=== PATIENT | female | born 1980 | race Caucasian/White ===

== ENCOUNTER 2017-12-15 10:19 | Emergency (ER) | payer BC ==
[2017-12-15 10:34] VITALS: BP 121/76
--- NOTE | 2017-12-15 10:52 | ED ---
Lower Extremity - HPI Summary HPI Summary: 37 yr old female with the complaint of right foot redness, swelling. She was camping in [facility] over the weekend. On Friday she thought she had gotten a bug bite to the top of foot near, 3/4 toes. Then she began to get some redness and blister that formed on Friday in the area, and today the right foot appears more red proximally on the dorsum with mild swelling to the foot now. No fever or chills. She does not feel ill. No other complaints. - History of Current Complaint Chief Complaint: UCLowerExtremity Stated Complaint: RT TOE COMPLAINT Time Seen by Provider: 12/15/17 10:36 Hx Last Menstrual Period: 12/26/14 Pain Intensity: 6 - Allergies/Home Medications Allergies/Adverse Reactions: Allergies Allergy/AdvReac Type Severity Reaction Status Date / Time artificial colors Allergy Intermediate Rash Uncoded 12/15/17 10:33 Home Medications: Home Medications Turmeric [Curcumin] 1 tab PO DAILY 12/15/17 [History Confirmed 12/15/17] PMH/Surg Hx/FS Hx/Imm Hx Infectious Disease History: No Infectious Disease History: Denies: Traveled Outside the [place] in Last 30 Days - Family History Known Family History: Positive: None - Social History Occupation: Employed Full-time Lives: With Family Alcohol Use: Occasionally Substance Use Type: Reports: None Smoking Status (MU): Never Smoked Tobacco Review of Systems Constitutional: Negative Positive: Other - cellulitis foot All Other Systems Reviewed And Are Negative: Yes Physical Exam Triage Information Reviewed: Yes Vital Signs On Initial Exam: Initial Vitals Temp Pulse Resp BP Pulse Ox 99.2 F 89 14 121/76 100 12/15/17 10:29 12/15/17 10:29 12/15/17 10:29 12/15/17 10:29 12/15/17 10:29 Vital Signs Reviewed: Yes Appearance: Positive: Well-Appearing, No Pain Distress Skin: Positive: Other - redness to the dorsum of the right foot over the MP areas of 3/4 toes without any blisters. There is redness going more proximal on dorsum of the foot with associated mild edema. Head/Face: Positive: Normal Head/Face Inspection Eyes: Positive: EOMI Neck: Positive: Nontender Respiratory/Lung Sounds: Positive: Clear to Auscultation, Breath Sounds Present Cardiovascular: Positive: Pulses are Symmetrical in both Upper and Lower Extremities - DP and PT pulses good and strong.. Negative: Leg Edema Left, Leg Edema Right - no edema calf or thigh Abdomen Description: Negative: Distended Musculoskeletal: Positive: Strength/ROM Intact Neurological: Positive: Alert, Oriented to Person Place, Time, CN Intact II-III , Speech Normal Psychiatric: Positive: Normal - Cristin Coma Scale Best Eye Response: 4 - Spontaneous Best Motor Response: 6 - Obeys Commands Best Verbal Response: 5 - Oriented Coma Scale Total: 15 Diagnostics - Vital Signs Vital Signs Temp Pulse Resp BP Pulse Ox 12/15/17 10:29 99.2 F 89 14 121/76 100 - Laboratory Lab Statement: Any lab studies that have been ordered have been reviewed, and results considered in the medical decision making process. Lower Extremity Course/Dx - Course Course Of Treatment: 37 yr old with likely bug bite to the dorsum of foot and now cellulitis. Rx with Bactrim. - Diagnoses Provider Diagnoses: Cellulitis Discharge - Sign-Out/Discharge Documenting (check all that apply): Discharge/Admit/Transfer - Discharge Plan Condition: Good Disposition: HOME Prescriptions: Sulfamethox/Trimethoprim DS* [Bactrim DS 800/160 TAB*] 1 tab PO BID #20 tab Patient Education Materials: Cellulitis (ED) Referrals: Monet Carrillo MD [Primary Care Provider] - 2 Days - Billing Disposition and Condition Condition: GOOD Disposition: Home
== END 2017-12-15 10:54 | disposition home or self-care (01) ==
LOC: UCCORT 10:19
DX: L03.115 Cellulitis of right lower limb (principal)
CPT/HCPCS: 99212; G0463